=== PATIENT | female | born 1990 | race Asian ===

== ENCOUNTER 2018-09-16 18:51 | Emergency (ER) | payer OTHER ==
[~2018-09-16] VITALS: Ht 154.9 cm; Wt 59.0 kg
[2018-09-16 19:26] LABS: BASOPHILS # (AUTO) 0.08 x10^3/uL (0-0.1); BASOPHILS % (AUTO) 1 % (0-1); EOSINOPHILS # (AUTO) 0.08 x10^3/uL (0-0.4); EOSINOPHILS % (AUTO) 1 % (1-7); LYMPHOCYTES # (AUTO) 2.29 x10^3/uL (1-3.4); LYMPHOCYTES % (AUTO) 18 % (22-44); MD NO; MEAN CORPUSCULAR HGB CONC 34.1 g/dL (32.4-35.8); MEAN PLATELET VOLUME 9.7 fL (7.4-10.4); MONOCYTES # (AUTO) 0.87 x10^3/uL (0.2-0.8); MONOCYTES % (AUTO) 7 % (2-9); NEUTROPHILS # (AUTO) 9.55 x10^3/uL (1.8-6.8); NEUTROPHILS % (AUTO) 74 % (42-75); PLATELET COUNT 271 x10^3/uL (130-400); RED BLOOD COUNT 4.35 x10^6/uL (3.82-5.3); RED CELL DISTRIBUTION WIDTH 12.9 % (9.6-15.2)
[2018-09-16 19:40] LABS: ALBUMIN 3.7 g/dL (3.4-5.0); ANION GAP 8 mmol/L (5-15); CALCIUM 8.4 mg/dL (8.5-10.1); CHLORIDE 104 mmol/L (98-107); CREATININE 0.69 mg/dL (0.55-1.02)
[2018-09-16 20:01] LABS: CULTURE INDICATED? NO; MICROSCOPIC NOT IND
[2018-09-16 20:03] VITALS: BP 110/61
== END 2018-09-16 20:51 | disposition home or self-care (01) ==
LOC: ED 20:09
DX: O26.891 Other specified pregnancy related conditions, first trimester (principal); R10.32 Left lower quadrant pain; R10.12 Left upper quadrant pain; Z3A.01 Less than 8 weeks gestation of pregnancy; R11.0 Nausea
CPT/HCPCS: 36415; 76801; 80048; 81003; 82040; 84702; 85025; 99285

== ENCOUNTER 2019-03-18 03:12 | Outpatient (CLI) | payer OTHER ==
[~2019-03-18] VITALS: Ht 154.9 cm; Wt 13.6 kg
[2019-03-18] MEDS ORDERED: PREN1TAB60 PO (03:50)
[2019-03-18] MEDS ORDERED: IRON1TAB60 PO (03:51)
[2019-03-18] MEDS ORDERED: ASCO500C10 PO (03:53)
== END 2019-03-18 04:15 | disposition home or self-care (01) ==
LOC: LDOP 03:12
PROVIDERS: ATTEND Obstetrics & Gynecology
DX: O36.8130 Decreased fetal movements, third trimester, not applicable or unspecified (principal); Z91.030 Bee allergy status; Z3A.40 40 weeks gestation of pregnancy
CPT/HCPCS: 59025; 99211; G0463

== ENCOUNTER 2019-05-01 00:18 | Inpatient (IN) | payer OTHER ==
[~2019-05-01] VITALS: Ht 152.4 cm; Wt 74.1 kg
[~2019-05-01 00:18] MED LIST: ASCO500C10 PO; IRON1TAB60 PO; PREN1TAB60 PO
[2019-05-01] MEDS ORDERED: OXYTOCIN 30U/ 0.9% NaCL 500ML 500 ML IV ONE (00:28)
[2019-05-01] MEDS ORDERED: D5%-LACTATED RINGERS 1,000 ML IV SCH (00:28)
[2019-05-01 00:30] VITALS: BP 124/80
[2019-05-01] MEDS ORDERED: ALUMINUM/MAG/SIMETHICONE 30 ML UDC PO PRN (00:30)
[2019-05-01] MEDS ORDERED: ONDANSETRON 2MG/ML, 2ML IVPush PRN ×2 (00:30→02:30)
[2019-05-01] MEDS ORDERED: CALCIUM CARBONATE 500 MG TAB.CHEW PO PRN ×3 (00:30→16:00)
[2019-05-01] MEDS ORDERED: METOCLOPRAMIDE 5 MG/ML, 2ML IVPush PRN (00:30)
[2019-05-01] MEDS ORDERED: FENTANYL PF 100 MCG/2ML IV PRN ×2 (00:30→13:30)
[2019-05-01] MEDS ORDERED: FENTANYL PF 100 MCG/2ML IVPush PRN (00:30)
[2019-05-01] MEDS ORDERED: SODIUM CITRATE/CITRIC ACID 15 ML UDC PO PRN (00:30)
[2019-05-01] MEDS ORDERED: FENTANYL/BUPIV./NS/PF 250 ML EPIDCONT SCH ×2 (00:30→02:30)
[2019-05-01] MEDS ORDERED: LIDOCAINE 1%, 20ML ONE (00:41)
[2019-05-01] MEDS ORDERED: NEWBORN KIT ONE (00:41)
[2019-05-01] MEDS ORDERED: MISOPROSTOL 200 MCG TABLET ONE (00:42)
[2019-05-01] MEDS ORDERED: OXYTOCIN 30U/ 0.9% NaCL 500ML 500 ML ONE (00:42)
[2019-05-01] MEDS: LACTATED RINGERS 1,000 ML IV SCH ×5 (00:52→23:48)
[2019-05-01 00:58] LABS: BASOPHILS # (AUTO) 0.03 x10^3/uL (0-0.1); BASOPHILS % (AUTO) 0 % (0-1); EOSINOPHILS # (AUTO) 0.08 x10^3/uL (0-0.4); EOSINOPHILS % (AUTO) 1 % (1-7); LYMPHOCYTES # (AUTO) 1.65 x10^3/uL (1-3.4); LYMPHOCYTES % (AUTO) 20 % (22-44); MD NO; MEAN CORPUSCULAR HEMOGLOBIN 29.6 pg (27.0-34.8); MEAN CORPUSCULAR VOLUME 89.7 fL (80-100); MEAN PLATELET VOLUME 10.1 fL (7.4-10.4); MONOCYTES # (AUTO) 0.84 x10^3/uL (0.2-0.8); MONOCYTES % (AUTO) 10 % (2-9); NEUTROPHILS # (AUTO) 5.75 x10^3/uL (1.8-6.8); NEUTROPHILS % (AUTO) 69 % (42-75); PLATELET COUNT 194 x10^3/uL (130-400); RED BLOOD COUNT 4.13 x10^6/uL (3.82-5.3); RED CELL DISTRIBUTION WIDTH 13.4 % (9.6-15.2)
[2019-05-01] MEDS ORDERED: FENTANYL PF 500 MCG, BUPIVACAINE/PF 0.5%, 30ML 62.5 ML in SODIUM CHLORIDE 0.9% 177.5 ML EPIDCONT SCH (01:00)
[2019-05-01] MEDS ORDERED: FENTANYL PF 100 MCG/2ML ONE ×2 (01:12→11:16)
[2019-05-01] MEDS ORDERED: BUPIVACAINE 0.25% ONE ×2 (02:11→11:17)
[2019-05-01] MEDS ORDERED: LACTATED RINGERS 1,000 ML IVBOLUS PRN (02:30)
[2019-05-01] MEDS ORDERED: DIPHENHYDRAMINE 50 MG/ML, 1ML IVPush PRN ×2 (02:30→13:30)
[2019-05-01] MEDS ORDERED: NALOXONE 0.4 MG/ML, 1ML IVPush PRN (02:30)
[2019-05-01] MEDS ORDERED: LACTATED RINGERS 1,000 ML IV SCH ×3 (02:30→13:27)
[2019-05-01] MEDS ORDERED: EPHEDRINE 50 MG/ML, 1ML IVPush PRN ×2 (02:30→13:30)
[2019-05-01] MEDS ORDERED: TERBUTALINE 1 MG/ML, 1ML ONE (07:52)
[2019-05-01 08:00] VITALS: BP 128/59
[2019-05-01] MEDS ORDERED: TERBUTALINE 1 MG/ML, 1ML IV ONE (08:00)
[2019-05-01] MEDS ORDERED: OXYTOCIN 30U/ 0.9% NaCL 500ML 500 ML IV PRN (10:34)
[2019-05-01] MEDS ORDERED: SODIUM CITRATE/CITRIC ACID 15 ML UDC ONE (12:11)
[2019-05-01] MEDS ORDERED: METOCLOPRAMIDE 5 MG/ML, 2ML ONE (12:11)
[2019-05-01] MEDS ORDERED: AZITHROMYCIN 500 MG in SODIUM CHLORIDE 0.9% 250 ML IV ONE (13:00)
[2019-05-01] MEDS ORDERED: OXYTOCIN 30U/ 0.9% NaCL 500ML 500 ML IV SCH (13:27)
[2019-05-01] MEDS ORDERED: morphine SULFATE 10 MG/ML, 1ML IVPush PRN (13:30)
[2019-05-01] MEDS ORDERED: ACETAMINOPHEN 325 MG TABLET PO PRN ×2 (13:30)
[2019-05-01] MEDS ORDERED: ONDANSETRON 2MG/ML, 2ML IV PRN ×3 (13:30→16:00)
[2019-05-01] MEDS ORDERED: OXYcodone 5 MG/5 ML ORAL.SOL UDC PO PRN (13:30)
[2019-05-01] MEDS ORDERED: MEPERIDINE/PF 25MG/0.5ML IVPush PRN (13:30)
[2019-05-01] MEDS ORDERED: DOCUSATE 100 MG CAPSULE PO PRN (13:30)
[2019-05-01] MEDS ORDERED: METHYLERGONOVINE 0.2 MG/ML IM PRN ×2 (13:30→16:00)
[2019-05-01] MEDS ORDERED: MISOPROSTOL 200 MCG TABLET PR PRN ×2 (13:30→16:00)
[2019-05-01] MEDS ORDERED: METOCLOPRAMIDE 5 MG/ML, 2ML IV PRN (13:30)
[2019-05-01] MEDS ORDERED: CARBOPROST TROMETHAMINE 250 MCG/ML, 1ML IM PRN ×2 (13:30→16:00)
[2019-05-01] MEDS ORDERED: MORPHINE SULFATE 4 MG/ML, 1ML IVPush PRN ×3 (13:30→16:00)
[2019-05-01] MEDS ORDERED: IBUPROFEN 600 MG TABLET PO PRN (13:30)
[2019-05-01] MEDS ORDERED: OXYcodone/APAP 5/325MG TABLET PO PRN ×2 (13:30)
[2019-05-01] MEDS ORDERED: MEPERIDINE/PF 50 MG/ML ONE (13:31)
[2019-05-01] MEDS ORDERED: OXYcodone/APAP 5/325MG TABLET ONE (14:09)
[2019-05-01 15:30] VITALS: BP 125/78
[2019-05-01] MEDS: OXYTOCIN 30U/ 0.9% NaCL 500ML 500 ML IV SCH (15:48)
[2019-05-01] MEDS ORDERED: morphine SULFATE 10 MG/ML, 1ML IM PRN (16:00)
[2019-05-01] MEDS: IBUPROFEN 600 MG TABLET PO PRN ×2 (16:48→23:33)
[2019-05-01] MEDS: DOCUSATE 100 MG CAPSULE PO PRN (19:22)
[2019-05-01] MEDS: OXYcodone/APAP 5/325MG TABLET PO PRN ×2 (19:22→23:34)
[2019-05-01 19:30] VITALS: BP 128/83
[2019-05-02] VITALS: BP 122/74
[2019-05-02] MEDS: OXYTOCIN 30U/ 0.9% NaCL 500ML 500 ML IV SCH ×3 (01:48→21:48)
[2019-05-02] MEDS: LACTATED RINGERS 1,000 ML IV SCH ×2 (01:48→07:48)
[2019-05-02] MEDS: OXYcodone/APAP 5/325MG TABLET PO PRN ×5 (03:31→18:42)
[2019-05-02 04:00] VITALS: BP 115/78
[2019-05-02 05:55] LABS: BASOPHILS # (AUTO) 0.03 x10^3/uL (0-0.1); BASOPHILS % (AUTO) 0 % (0-1); EOSINOPHILS # (AUTO) 0.05 x10^3/uL (0-0.4); EOSINOPHILS % (AUTO) 0 % (1-7); LYMPHOCYTES # (AUTO) 1.44 x10^3/uL (1-3.4); LYMPHOCYTES % (AUTO) 11 % (22-44); MD NO; MEAN CORPUSCULAR HEMOGLOBIN 29.2 pg (27.0-34.8); MEAN CORPUSCULAR HGB CONC 32.7 g/dL (32.4-35.8); MEAN CORPUSCULAR VOLUME 89.2 fL (80-100); MEAN PLATELET VOLUME 9.8 fL (7.4-10.4); MONOCYTES # (AUTO) 0.83 x10^3/uL (0.2-0.8); MONOCYTES % (AUTO) 7 % (2-9); NEUTROPHILS # (AUTO) 10.32 x10^3/uL (1.8-6.8); NEUTROPHILS % (AUTO) 82 % (42-75); PLATELET COUNT 168 x10^3/uL (130-400); RED BLOOD COUNT 3.51 x10^6/uL (3.82-5.3)
[2019-05-02] MEDS: DOCUSATE 100 MG CAPSULE PO PRN (08:49)
[2019-05-02] MEDS: PRENATAL VIT/IRON/FA 1 EACH TABLET PO SCH (08:49)
[2019-05-02] MEDS: IBUPROFEN 600 MG TABLET PO PRN ×3 (08:49→20:27)
[2019-05-02 08:50] VITALS: BP 105/71
[2019-05-02] MEDS ORDERED: PRENATAL VIT/IRON/FA 1 EACH TABLET PO SCH (09:00)
[2019-05-02 20:00] VITALS: BP 107/71
[2019-05-03] MEDS: OXYcodone/APAP 5/325MG TABLET PO PRN ×5 (02:29→22:52)
[2019-05-03] MEDS: IBUPROFEN 600 MG TABLET PO PRN ×3 (02:29→18:07)
[2019-05-03] MEDS: PRENATAL VIT/IRON/FA 1 EACH TABLET PO SCH (07:07)
[2019-05-03] MEDS: DOCUSATE 100 MG CAPSULE PO PRN ×2 (07:07→22:52)
[2019-05-03] MEDS: OXYTOCIN 30U/ 0.9% NaCL 500ML 500 ML IV SCH ×2 (07:48→17:48)
[2019-05-03 07:54] VITALS: BP 122/79
[2019-05-03] MEDS ORDERED: IBUP-1222 PO (11:36)
[2019-05-03] MEDS ORDERED: OXYC-302 PO (11:36)
[2019-05-03 20:10] VITALS: BP 123/82
[2019-05-04] MEDS: IBUPROFEN 600 MG TABLET PO PRN (03:29)
[2019-05-04] MEDS: OXYcodone/APAP 5/325MG TABLET PO PRN ×2 (03:30→07:28)
[2019-05-04] MEDS: DOCUSATE 100 MG CAPSULE PO PRN (07:28)
[2019-05-04] MEDS: PRENATAL VIT/IRON/FA 1 EACH TABLET PO SCH (07:28)
[2019-05-04 08:00] VITALS: BP 122/76
== END 2019-05-04 11:50 | disposition home or self-care (01) | DRG 788 ==
LOC: LDOP 00:18 → LDIP 00:41 → 2NW 15:23
PROVIDERS: ADMIT Obstetrics & Gynecology; ATTEND Obstetrics & Gynecology
PROC: 10D00Z1 Extraction of Products of Conception, Low, Open Approach (ICD-10-PCS; principal; 2019-05-01)
DX: O24.420 Gestational diabetes mellitus in childbirth, diet controlled (principal); O32.1XX0 Maternal care for breech presentation, not applicable or unspecified; O40.3XX0 Polyhydramnios, third trimester, not applicable or unspecified; O62.1 Secondary uterine inertia; Z37.0 Single live birth; Z3A.39 39 weeks gestation of pregnancy
CPT/HCPCS: 36415; 82803; 82947; 82962; 85025; 86850; 86900; G0378; J2175; J3010; J2590; J2765; J3105; J7120